=== PATIENT | male | born 1975 | race Caucasian/White ===

== ENCOUNTER 2017-03-09 19:12 | Emergency (ER) | payer SELFPAY ==
--- NOTE | 2017-03-09 19:17 | PDOC ---
History of Present Illness - History of Present Illness Initial Comments: 03/09/17 19:24 The patient is a 41 year old male with no significant past medical history who presents to the ED complaining of left sided groin pain that began today. 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 He denies any swelling or deformity. He denies any fever or chills. He denies nausea, vomiting, or diarrhea. He denies hematuria or dysuria. He states he took Advil for pain. PAST MEDICAL HISTORY: no significant history PAST SURGICAL HISTORY: no significant history FAMILY HISTORY: no pertinent history SOCIAL HISTORY: Pt lives with family and is employed. MEDICATIONS: reviewed ALLERGIES: As per nursing notes Adult ROS General: No fevers or chills, no weakness, no weight loss HEENT: No change in vision. No sore throat,. No ear pain CardioVascular: No chest pain or shortness of breath Respiratory:No cough, or wheezing. Gastrointestinal: no nausea, vomiting, diarrhea or constipation, No rectal bleeding Genitourinary: +Left groin pain. No dysuria, hematuria, or frequency Musculoskeletal: No joint or muscle pain or swelling Neurologic: No headache, vertigo, dizziness or loss of consciousness Psychiatric: nor depression Skin: No rashes or easy bruising Endocrine: no increased thirst or abnormal weight change Allergic: no skin or latex allergy All other systems reviewed and normal Adult Exam: General: Well-nourished well-developed individual, no acute distress HEENT: Throat: Normal, tonsils normal, no erythema or exudate Neck: Supple, no meningeal signs, no lymphadenopathy Eyes::Pupils equal reactive and round, extraocular motion intact Chest: Nontender to palpation Cardiac: S1-S2 normal, regular rate and rhythm, no murmurs rubs or gallops Respiratory: Lungs clear to auscultation bilateral Abdomen: +Tenderness to left lower quadrant and left groin. No palpable masses or hernia. No lymphadenopathy. No erythema. No back or flank pain. Soft, nondistended, normal bowel sounds. Extremities: Warm, dry, no cyanosis, clubbing, or edema Skin: No rashes Neuro: Alert and oriented x3, nonfocal exam, grossly intact, normal gait Psych: Normal mood and affect : Normal circumcised male. No penile discharge. No testicular tenderness or masses. Documentation prepared by Sherri Oshea, acting as medical review coordinator for Anderson Robert MD. <Sherri Oshea - Last Filed: 03/09/17 19:24> - General History Source: Patient Exam Limitations: No Limitations - History of Present Illness Initial Comments: A portion of this note was documented by scribe services under my direction. I have reviewed the details of the note, within reason, and agree with the documentation. The case summary and management plan written by me. Assessment and plan: This is a 41-year-old male who comes in complaining of pain in the area of his left groin. On my exam there was no evidence of a hernia , lymphadenopathy, infectious cause, or cause. Patient's lab work was normal including a normal white count, no left shift and normal chemistries. Patient also had a urinalysis that was negative for any red cells white cells or bacteria. Pt is and with same partner for years. No h/O STD's Patient was given an anti-inflammatory and does feel better after an anti- inflammatory. and told to follow-up with his primary care next week if not improved. <Anderson Robert I - Last Filed: 03/09/17 21:26> - General Chief Complaint: Pain Stated Complaint: LEFT GROIN PAIN Time Seen by Provider: 03/09/17 19:13 Past History <Sherri Oshea - Last Filed: 03/09/17 19:24> <Anderson Robert I - Last Filed: 03/09/17 21:26> - Past Medical History Allergies/Adverse Reactions: Allergies Allergy/AdvReac Type Severity Reaction Status Date / Time No Known Allergies Allergy Verified 03/09/17 19:13 Home Medications: Ambulatory Orders NK [No Known Home Medication] 03/09/17 *Physical Exam - Vital Signs Last Vital Signs Temp Pulse Resp BP Pulse Ox 97.8 F 72 15 94/62 98 03/09/17 19:13 03/09/17 19:13 03/09/17 19:13 03/09/17 19:13 03/09/17 19:13 <Sherri Oshea - Last Filed: 03/09/17 19:24> ED Treatment Course - LABORATORY CBC & Chemistry Diagram: 03/09/17 20:15 03/09/17 20:15 <DarcyquinnKatie Osmanlynnjun Itzel - Last Filed: 03/09/17 21:26> *DC/Admit/Observation/Transfer <GeonvevabertaSherri - Last Filed: 03/09/17 19:24> - Discharge Dispostion Admit: No <DarcyquinnAnderson Osman I - Last Filed: 03/09/17 21:26> Diagnosis at time of Disposition: Left groin pain - Discharge Dispostion Disposition: HOME Condition at time of disposition: Good - Patient Instructions Additional Instructions: For the pain take ibuprofen 3 tablets 3 times a day with food or you can alternate lead take Aleve 2 tablets twice a day. If not improved in 2-3 days follow-up with your primary care doctor, Return to the emergency department immediately with ANY new, persistent or worsening symptoms. Continue any medications as previously prescribed by your physician. You should follow up with your primary doctor as soon as possible regarding today's emergency department visit. . Please make sure your doctor reviews the results of your emergency evaluation. Thank you for coming to the Emergency Department today for your care. It was a pleasure to see you today. Please note that your evaluation is INCOMPLETE until you follow-up with your doctor.
[2017-03-09 19:20] VITALS: BP 94/62; PULSE 72; TEMP 97.8; BMI 27.1
[2017-03-09 19:51] LABS: PH,URINE 5.5 (4.5-8); URINE APPEARANCE Clear; URINE BILIRUBIN Negative (NEGATIVE); URINE BLOOD Negative (NEGATIVE); URINE COLOR YELLOW; URINE GLUCOSE (UA) Negative (NEGATIVE); URINE KETONE Negative (NEGATIVE); URINE NITRITE Negative (NEGATIVE); URINE PROTEIN Trace (NEGATIVE); URINE UROBILINOGEN 0.2 (0.2-1.0)
[2017-03-09] MEDS ORDERED: KETOROLAC TROMETHAMINE 30 MG/1 ML VIAL IVPUSH ONE (19:55)
[2017-03-09] MEDS ORDERED: KETOROLAC TROMETHAMINE 30 MG/1 ML VIAL ONE (20:19)
[2017-03-09 20:38] LABS: BASO % 0.8 % (0-2.0); EOS % 4.6 % (0-4.5); HEMATOCRIT 34.7 % (35.4-49); HEMOGLOBIN 11.4 GM/dl (11.7-16.9); LYMPH % 22.9 % (8-40); MCH 31.5 pg (25.7-33.7); MCHC 32.8 g/dl (32.0-35.9); MEAN CELL VOLUME 95.9 fl (80-96); MEAN PLT VOLUME 7.9 fl (7.5-11.1); MONO % 5.8 % (3.8-10.2); NEUT % 65.9 % (42.8-82.8); PLATELET COUNT 297 K/MM3 (134-434); RBC 3.62 M/mm3 (4.00-5.60); RDW 13.4 % (11.9-15.9); WHITE BLOOD COUNT 5.1 K/mm3 (4.0-10.8)
[2017-03-09 21:12] LABS: ANION GAP 7 (8-16); BLOOD UREA NITROGEN 23 mg/dl (7-18); CALCIUM 9.6 mg/dl (8.4-10.2); CHLORIDE 105 mmol/L (98-107); CO2 26 mmol/L (22-28); CREATININE 1.2 mg/dl (0.6-1.3); GLUCOSE,RANDOM 84 mg/dl (74-106); POTASSIUM 3.8 mmol/L (3.5-5.1); SODIUM 138 mmol/L (136-145); TOT PROT 7.2 g/dl (6.4-8.3)
[2017-03-09 21:13] LABS: ALBUMIN 4.7 g/dl (3.5-5.0); ALK PHOS 69 U/L (32-92); BILIRUBIN,TOTAL 0.5 mg/dl (0.2-1.0); SGOT/AST 58 U/L (10-42); SGPT/ALT 31 U/L (10-40)
== END 2017-03-09 21:31 | disposition home or self-care (01) ==
LOC: FER 19:12
PROC: 3E0333Z Introduction of Anti-inflammatory into Peripheral Vein, Percutaneous Approach (ICD-10-PCS; principal; 2017-03-09)
DX: R10.32 Left lower quadrant pain (principal)
CPT/HCPCS: 36415; 80053; 81003; 85025; 99281-25

== ENCOUNTER 2021-04-24 04:38 | Day surgery (SDC) | payer OTHER ==
[2021-04-06 13:11] VITALS: BMI 26.6
[~2021-04-24 04:38] MED LIST: BUPIVACAINE HCL/PF 0.5% (5MG/ML) 10 ML VIAL IJ ONE; LIDOCAINE HCL 1%, 10 MG/ML (20ML VIAL) INF ONE
[2021-04-24] MEDS ORDERED: BUPIVACAINE HCL/PF 0.5% (5MG/ML) 10 ML VIAL ONE (07:58)
[2021-04-24] MEDS ORDERED: LIDOCAINE HCL 1%, 10 MG/ML (20ML VIAL) ONE (07:58)
[2021-04-24] MEDS ORDERED: PROPOFOL 20 ML ONE (09:31)
[2021-04-24] MEDS ORDERED: LIDOCAINE HCL/PF 2% SDV 5ML VIAL ONE (09:31)
[2021-04-24] MEDS ORDERED: SUCCINYLCHOLINE CHLORIDE 200 MG/10 ML SYRINGE ONE (09:31)
[2021-04-24] MEDS ORDERED: ROCURONIUM BROMIDE 50 MG/5 ML SYRINGE ONE (09:31)
[2021-04-24] MEDS ORDERED: MIDAZOLAM HCL 2 MG/2 ML SINGLE DOSE VIAL ONE (09:32)
[2021-04-24] MEDS ORDERED: ceFAZolin SODIUM 1 GM VIAL IVPB ONE (09:55)
[2021-04-24] MEDS ORDERED: BUPIVACAINE HCL/PF 0.5% (5MG/ML) 10 ML VIAL IJ ONE ×2 (10:01)
[2021-04-24] MEDS ORDERED: LIDOCAINE HCL 1%, 10 MG/ML (20ML VIAL) INF ONE ×2 (10:01)
[2021-04-24] MEDS ORDERED: oxyCODONE HCL 5 MG TABLET PO PRN ×2 (11:37)
[2021-04-24] MEDS ORDERED: ACETAMINOPHEN 1000 MG/100 ML BAG IVPB PRN (11:37)
[2021-04-24] MEDS ORDERED: PROMETHAZINE HCL 25 MG/1 ML VIAL IVPUSH PRN (11:37)
[2021-04-24] MEDS ORDERED: ONDANSETRON 4 MG/2 ML VIAL IVPUSH PRN (11:37)
[2021-04-24] MEDS ORDERED: LACTATED RINGERS SOLUTION 1,000 ML IV SCH (11:45)
[2021-04-24] MEDS ORDERED: DEXAMETHASONE SOD PHOSPHATE 4 MG/1 ML VIAL ONE (13:03)
[2021-04-24] MEDS ORDERED: ceFAZolin SODIUM 1 GM VIAL ONE ×2 (13:03)
[2021-04-24 13:40] VITALS: BP 106/82; PULSE 77; TEMP 96
== END 2021-04-24 14:00 | disposition home or self-care (01) ==
LOC: JASU-SURG 04:38
PROVIDERS: ATTEND Surgery
PROC: 0YU60JZ Supplement Left Inguinal Region with Synthetic Substitute, Open Approach (ICD-10-PCS; principal; 2021-04-24 12:00)
DX: K40.90 Unilateral inguinal hernia, without obstruction or gangrene, not specified as recurrent (principal)
CPT/HCPCS: 94760